=== PATIENT | female | born 1995 | race Caucasian/White ===

== ENCOUNTER → 2016-11-18 | Outpatient (CLI) | payer BC, OTHER | LOC: BMCIMAGING 10:46 | PROVIDERS: ATTEND Physician Assistant Medical | DX: Z02.89 Encounter for other administrative examinations (principal) ==

== ENCOUNTER 2018-04-21 02:28 | Emergency (ER) | payer BC, OTHER ==
--- NOTE | 2018-04-21 02:40 | EDPHY ---
H & P Time Seen by Provider: 04/21/18 02:40 HPI/ROS: HPI CHIEF COMPLAINT: Fever, cough, sore throat HISTORY OF PRESENT ILLNESS: Patient is a 22-year-old female she arrives to the emergency room status she has had high fever, she states this been going on for 24 hr. [facility] and was given cefdinir for a sore throat. She reports she had a negative flu negative strep test. Reports 102 fever at home. She arrives to the emergency room is noted to be tachycardic and febrile to 39 degrees. Her main complaint is muscle aches, joint pain, sore throat, cough and fever. She reports the cough is rather nonproductive. Past Medical History: Denies significant medical history Past Surgical History: Denies significant surgical history Social History: Denies drugs alcohol tobacco. [employer] student. Family History: Noncontributory ROS REVIEW OF SYSTEMS: 10 Systems were reviewed and negative with the exception of the elements mentioned in the history of present illness. Exam Constitutional triage nursing summary reviewed, vital signs reviewed, awake/ alert. Noted to be tachycardic upon arrival. Febrile 39.3. Eyes normal conjunctivae and sclera, EOMI, PERRLA. HENT normal inspection, atraumatic, moist mucus membranes, no epistaxis, neck supple/ no meningismus, no raccoon eyes. Respiratory dry cough on exam. clear to auscultation bilaterally, normal breath sounds, no respiratory distress, no wheezing. Cardiovascular tachycardia, regular rhythm, no murmur, no edema, distal pulses normal. Gastrointestinal soft, non-tender, no rebound, no guarding, normal bowel sounds, no distension, no pulsatile mass. Genitourinary no CVA tenderness. Musculoskeletal no midline vertebral tenderness, full range of motion, no calf swelling, no tenderness of extremities, no meningismus, good pulses, neurovascularly intact. Skin pink, warm, & dry, no rash, skin atraumatic. Neurologic awake, alert and oriented x 3, AAOx3, moves all 4 extremities equally, motor intact, sensory intact, CN II-XII intact, normal cerebellar, normal vision, normal speech. Psychiatric normal mood/affect. Heme/Lymph/Immune no lymphadenopathy. Differential Diagnosis: Includes but is not limited to in a particular order viral syndrome, upper respiratory tract infection, pneumonia, viral pneumonia, bacterial pneumonia, influenza, strep, dehydration Medical Decision Making: Plan for this patient IV establishment with IV fluid bolus 2 L normal saline, Tylenol 1 g for fever control, Toradol fever control pain control, basic labs, chest x-ray, influenza and strep. And re-evaluate. Re-evaluation: Influenza a positive. Chest x-ray two view negative for acute pneumonia. 5:03 a.m. Patient re-evaluated she is resting comfortably she feels much better after Tylenol, Toradol, IV fluids 2 L. She is influenza a positive. I have started on Tamiflu here in the emergency room. Tamiflu prescription will be provided She does feel well enough to go home. I do recommend she stays well hydrated drink lots of fluid alternate Tylenol Motrin for fever control. Tamiflu as prescribed. Additionally we discussed return precautions she understands return emergency room she develops worsening symptoms high fever, vomiting, not doing well Source: Patient - Personal History Tetanus Vaccine Date: < 10 years - Medical/Surgical History Hx Asthma: No Hx Chronic Respiratory Disease: No Hx Diabetes: No Hx Cardiac Disease: No Hx Renal Disease: No Hx Cirrhosis: No Hx Alcoholism: No Hx HIV/AIDS: No Hx Splenectomy or Spleen Trauma: No Other PMH: mono, MVP - Social History Smoking Status: Never smoked Constitutional: Initial Vital Signs Temperature (C) 39.4 C H 04/21/18 02:39 Heart Rate 143 H 04/21/18 02:39 Respiratory Rate 18 04/21/18 02:39 Blood Pressure 128/88 H 04/21/18 02:39 O2 Sat (%) 95 04/21/18 02:39 O2 Delivery Mode Room Air Allergies/Adverse Reactions: No Known Allergies Allergy (Verified 04/21/18 02:37) Home Medications: Medication Instructions Recorded Cefdinir 04/21/18 Oseltamivir Phosphate [Tamiflu 75 75 mg PO BID #10 cap 04/21/18 mg (*)] Medical Decision Making - Data Points Laboratory Results: Laboratory Results 04/21/18 03:00 04/21/18 03:00 04/21/18 04/21/18 04/21/18 Unknown 05:00 03:00 WBC RBC Hgb Hct MCV MCH MCHC RDW Plt Count MPV Neut % (Auto) Lymph % (Auto) Banner % (Auto) Eos % (Auto) Baso % (Auto) Nucleat RBC Rel Count Absolute Neuts (auto) Absolute Lymphs (auto) Absolute Monos (auto) Absolute Eos (auto) Absolute Basos (auto) Absolute Nucleated RBC Immature Gran % Immature Gran # Sodium Potassium Chloride Carbon Dioxide Anion Gap BUN Creatinine Estimated GFR Glucose Calcium Urine Color PALE YELLOW Urine Appearance CLEAR Urine pH 6.0 (5.0-7.5) Ur Specific Sledge 1.003 (1.002-1.030) Urine Protein NEGATIVE (NEGATIVE) Urine Ketones 1+ H (NEGATIVE) Urine Blood NEGATIVE (NEGATIVE) Urine Nitrate NEGATIVE (NEGATIVE) Urine Bilirubin NEGATIVE (NEGATIVE) Urine Urobilinogen NEGATIVE EU EU (0.2-1.0) Ur Leukocyte Esterase 1+ H (NEGATIVE) Urine RBC 1-3 /hpf /hpf (0-3) Urine WBC 5-10 /hpf H /hpf (0-3) Ur Epithelial Cells TRACE /lpf /lpf (NONE-1+) Urine Bacteria 3+ /hpf H /hpf (NONE SEEN) Urine Mucus TRACE /lpf /lpf (NONE-1+) Urine Glucose NEGATIVE (NEGATIVE) Nasal Influenza A PCR Nasal Influenza B PCR Monoscreen NEGATIVE (NEGATIVE) Group A Strep Screen Group A Strep DNA Pending 04/21/18 04/21/18 04/21/18 03:00 03:00 03:00 WBC 12.17 10^3/uL H 10^3/uL (3.80-9.50) RBC 5.11 10^6/uL 10^6/uL (4.18-5.33) Hgb 15.0 g/dL g/dL (12.6-16.3) Hct 45.0 % % (38.0-47.0) MCV 88.1 fL fL (81.5-99.8) MCH 29.4 pg pg (27.9-34.1) MCHC 33.3 g/dL g/dL (32.4-36.7) RDW 12.8 % % (11.5-15.2) Plt Count 257 10^3/uL 10^3/uL (150-400) MPV 10.6 fL fL (8.7-11.7) Neut % (Auto) 81.0 % H % (39.3-74.2) Lymph % (Auto) 8.8 % L % (15.0-45.0) Banner % (Auto) 9.7 % % (4.5-13.0) Eos % (Auto) 0.1 % L % (0.6-7.6) Baso % (Auto) 0.2 % L % (0.3-1.7) Nucleat RBC Rel Count 0.0 % % (0.0-0.2) Absolute Neuts (auto) 9.86 10^3/uL H 10^3/uL (1.70-6.50) Absolute Lymphs (auto) 1.07 10^3/uL 10^3/uL (1.00-3.00) Absolute Monos (auto) 1.18 10^3/uL H 10^3/uL (0.30-0.80) Absolute Eos (auto) 0.01 10^3/uL L 10^3/uL (0.03-0.40) Absolute Basos (auto) 0.02 10^3/uL 10^3/uL (0.02-0.10) Absolute Nucleated RBC 0.00 10^3/uL 10^3/uL (0-0.01) Immature Gran % 0.2 % % (0.0-1.1) Immature Gran # 0.03 10^3/uL 10^3/uL (0.00-0.10) Sodium 139 mEq/L mEq/L (135-145) Potassium 3.9 mEq/L mEq/L (3.5-5.2) Chloride 105 mEq/L mEq/L (97-110) Carbon Dioxide 20 mEq/l L mEq/l (22-31) Anion Gap 14 mEq/L mEq/L (6-14) BUN 11 mg/dL mg/dL (7-23) Creatinine 0.8 mg/dL mg/dL (0.6-1.0) Estimated GFR > 60 Glucose 102 mg/dL H mg/dL (70-100) Calcium 9.4 mg/dL mg/dL (8.5-10.4) Urine Color Urine Appearance Urine pH Ur Specific Sledge Urine Protein Urine Ketones Urine Blood Urine Nitrate Urine Bilirubin Urine Urobilinogen Ur Leukocyte Esterase Urine RBC Urine WBC Ur Epithelial Cells Urine Bacteria Urine Mucus Urine Glucose Nasal Influenza A PCR FLU A DETECTED H (NEGATIVE) Nasal Influenza B PCR NEGATIVE FOR FLU B (NEGATIVE) Monoscreen Group A Strep Screen NEGATIVE (NEGATIVE) Group A Strep DNA Medications Given: Discontinued Medications Acetaminophen (Tylenol) 1,000 mg PO EDNOW ONE Stop: 04/21/18 02:44 Last Admin: 04/21/18 02:50 Dose: 1,000 mg Sodium Chloride (Ns) 1,000 mls @ 0 mls/hr IV EDNOW ONE; Wide Open PRN Reason: Protocol Stop: 04/21/18 02:44 Last Admin: 04/21/18 02:58 Dose: 1,000 mls Sodium Chloride (Ns) 1,000 mls @ 0 mls/hr IV EDNOW ONE; Wide Open PRN Reason: Protocol Stop: 04/21/18 02:44 Last Admin: 04/21/18 02:59 Dose: 1,000 mls Sodium Chloride (Ns) 1,000 mls @ 0 mls/hr IV ONCE ONE PRN Reason: Wide Open Stop: 04/21/18 05:03 Last Admin: 04/21/18 05:10 Dose: 1,000 mls Ketorolac Tromethamine (Toradol) 15 mg IVP ONCE ONE Stop: 04/21/18 02:44 Last Admin: 04/21/18 02:59 Dose: 15 mg Oseltamivir Phosphate (Tamiflu) 75 mg PO EDNOW ONE Stop: 04/21/18 04:02 Last Admin: 04/21/18 04:19 Dose: 75 mg Departure - Departure Clinical Impression: Influenza A Condition: Good Instructions: Influenza (ED) Additional Instructions: 1. Stay well-hydrated drink lots of fluids. 2. Alternate Tylenol and/or Motrin every 6-8 hours for fever control 3. Tamiflu as prescribed. 4. Return to the emergency room she doing worse this includes high fever, vomiting, not doing well Referrals: NONE *PRIMARY CARE P,. [Primary Care Provider] - As per Instructions [facility] [Clinic] - As per Instructions Prescriptions: Oseltamivir Phosphate [Tamiflu 75 mg (*)] 75 mg PO BID #10 cap
[2018-04-21] MEDS ORDERED: NS 1,000 ML IV ONE ×3 (02:43→05:02)
[2018-04-21] MEDS ORDERED: ACETAMINOPHEN 500 MG TAB PO ONE (02:43)
[2018-04-21] MEDS ORDERED: KETOROLAC 15 MG/1 ML SDV IVP ONE (02:43)
[2018-04-21 03:14] LABS: PLATELET COUNT 257 10^3/uL (150-400)
[2018-04-21] MEDS ORDERED: OSELTAMIVIR PHOSPHATE 75 MG CAP PO ONE (04:01)
[2018-04-21 06:29] VITALS: BP 105/72
== END 2018-04-21 06:27 | disposition home or self-care (01) ==
DX: J10.1 Influenza due to other identified influenza virus with other respiratory manifestations (principal); E86.9 Volume depletion, unspecified
CPT/HCPCS: 96374; J1885